=== PATIENT | female | born 1965 | race African-American/Black ===

== ENCOUNTER 2017-09-19 15:36 | Emergency (ER) | payer SELFPAY ==
[2017-09-19 15:40] VITALS: BP 127/78; BMI 37.3
--- NOTE | 2017-09-19 16:19 | DR.GENAD ---
HPI - PCP Primary Care Physician: NFSree - Complaint/Symptoms Chief Complaint:: PT C/O DIZZINESS WITH OCCIPITAL HEADACHES AND LIGHT CHEST PAIN. PT ALSO STATES SHE THINKS SHE HAS A BLOOD CLOT IN HER LT LOWER LEG. PT STATES THESE SYMPTOMS STARTED APPROX 1 WEEK AGO - Source History Provided: Patient - Mode of Arrival Mode of Arrival: Ambulatory - Timing Onset of Chief Complaint: 09/12/17 PMH - PMH Past Medical History: Yes Past Medical History: Anxiety, Depression Past Medical History Comment: INSOMMNIA, SLEEP APNEA Past Surgical History: Yes Surgical History: Past Surgical History Comment: WILDER HEART - Family History History of Family Medical Conditions: No - Social History Does any household member use tobacco: No Alcohol Use: None Do you use any recreational Drugs:: No Lives With: Family Lives Where: Home - infectious screening In the last 2 months have you had wt loss of >10#?: NO Have you had fever, night sweats or hemotysis?: No Have you traveled outside the country in the last 6 months?: No Isolation: Standard ROS - Review of Systems Eyes: No Symptoms Reported ENTM: No Symptoms Reported Respiratoy: No Symptoms Reported Cardiovascular: No Symptoms Reported Gastrointestinal/Abdominal: No Symptoms Reported Genitourinary: No Symptoms Reported Neurological: No Symptoms Reported Musculoskeletal: No Symptoms Reported Integumentary: No Symptoms Reported Hematologic/Lymphatic: No Symptoms Reported Endocrine: No Symptoms Reported Psychiatric: No Symptoms Reported All Other Systems: Reviewed and Negative PE - Vital Signs Vitals: Temperature 98.5 F Pulse Rate 87 Respiratory Rate 18 Blood Pressure 127/78 O2 Sat by Pulse Oximetry 100 - General Limitations: No Limitations General Appearance: Alert, In No Apparent Distress - Head Head Exam: Normal Inspection, Atraumatic - Eyes Eye exam: Normal Appearance, PERRL, EOMI - ENT ENT Exam: Normal Exam External Ear Exam: Normal External Inspection TM/Canal Exam: Bilateral Normal Nose Exam: Normal Nose Exam Mouth Exam: Normal Inspection Throat Exam: Normal Inspection - Neck Neck Exam: Normal Inspection, Full ROM - Chest Chest Inspection: Normal Inspection - Respiratory Respiratory Exam: Normal Lung Sounds Bilat Respiratory Exam: Bilateral Clear to Auscultation - Cardiovascular Cardiovascular Exam: Regular Rate, Normal Rhythm - Abdominal Exam Abdominal Exam: Normal Inspection, Normal Bowel Sounds Abdominal Tenderness: negative: RUQ, RLQ, LUQ, LLQ, Epigastrium, Suprapubic, Diffuse, Mild, Moderate, Severe, Other - Extremities Extremities Exam: Normal Inspection, Full ROM - Back Back Exam: Normal Inspection, Full ROM - Neurologic Neurological Exam: Alert, Oriented X3, CN II-XII Intact - Psychiatric Psychiatric Exam: Normal Affect - Skin Skin Exam: Warm, Dry, Intact Course - Reevaluation 1st: Unchanged ROR - Labs Reviewed Laboratory Results Reviewed?: Yes (visual acuity 20/30 0D/20/40 OD) Result Diagrams: 09/19/17 16:26 09/19/17 16:26 Laboratory: WBC 6.3 X10^3/uL (3.6-10.0) 09/19/17 16:26 RBC 5.04 X10^6/uL (3.5-5.4) 09/19/17 16:26 Hgb 12.5 g/dL (12.0-16.0) 09/19/17 16:26 Hct 39.4 % (36.0-47.0) 09/19/17 16:26 MCV 78.2 fL (80.0-100.0) L 09/19/17 16:26 MCH 24.9 pg (27.0-34.0) L 09/19/17 16:26 MCHC 31.8 g/dL (33.0-35.0) L 09/19/17 16:26 RDW 13.0 % (11.6-16.5) 09/19/17 16:26 Plt Count 219 X10^3/uL (150.0-450.0) 09/19/17 16:26 Plt Count Comment Adequate (ADEQUATE) 09/19/17 16:26 MPV 9.1 fL (7.4-11.0) 09/19/17 16:26 Neut % 63.3 % (42.0-75.0) 09/19/17 16:26 Lymph % 25.1 % (21.0-51.0) 09/19/17 16:26 Kings % 7.3 % (0.0-13.0) 09/19/17 16:26 Eos % 1.3 % (0.9-2.9) 09/19/17 16:26 Baso % 3.0 % (0.2-1.0) H 09/19/17 16:26 Neut # 4.0 x10^3/uL (2.2-4.8) 09/19/17 16:26 Lymph # 1.6 X10^3/uL (1.3-2.9) 09/19/17 16:26 Kings # 0.5 x10^3/uL (0.3-0.8) 09/19/17 16:26 Eos # 0.1 x10^3/uL (0.0-0.2) 09/19/17 16:26 Baso # 0.2 X10^3/uL (0.0-0.1) H 09/19/17 16:26 Absolute Nucleated RBC 0.0 /100WBC 09/19/17 16:26 Plt Morphology Comment Normal (NORMAL) 09/19/17 16:26 RBC Morphology Normal (NORMAL) 09/19/17 16:26 Sodium 144 mmol/L (136-145) 09/19/17 16:26 Corrected Sodium TNP 09/19/17 16:26 Potassium 3.9 mmol/L (3.5-5.1) 09/19/17 16:26 Chloride 107 mmol/L (98-107) 09/19/17 16:26 Carbon Dioxide 29.3 mmol/L (21-32) 09/19/17 16:26 BUN 16 mg/dL (7-18) 09/19/17 16:26 Creatinine 1.01 mg/dL (0.55-1.02) 09/19/17 16:26 Est GFR (MDRD) Af Amer > 60 (>60) 09/19/17 16:26 Est GFR (MDRD) Non-Af > 60 (>60) 09/19/17 16:26 Glucose 88 mg/dL (65-99) 09/19/17 16:26 Calcium 9.1 mg/dL (8.5-10.1) 09/19/17 16:26 - Diagnosis Discharge Problem: Dizziness, nonspecific, Visual acuity 20/40 - Discharge Plan Condition: Stable - Follow ups/Referrals Follow ups/Referrals: NFD,None [Primary Care Provider] - 3 days - Instructions
[2017-09-19 16:35] LABS: BASOPHILS # (AUTO) 0.2 X10^3/uL (0.0-0.1); EOSINOPHILS # (AUTO) 0.1 x10^3/uL (0.0-0.2); EOSINOPHILS % (AUTO) 1.3 % (0.9-2.9); HEMATOCRIT 39.4 % (36.0-47.0); HEMOGLOBIN 12.5 g/dL (12.0-16.0); LYMPHOCYTES # (AUTO) 1.6 X10^3/uL (1.3-2.9); LYMPHOCYTES % (AUTO) 25.1 % (21.0-51.0); MEAN CORPUSCULAR HEMOGLOBIN 24.9 pg (27.0-34.0); MEAN CORPUSCULAR HGB CONC 31.8 g/dL (33.0-35.0); MEAN CORPUSCULAR VOLUME 78.2 fL (80.0-100.0); MEAN PLATELET VOLUME 9.1 fL (7.4-11.0); MONOCYTES # (AUTO) 0.5 x10^3/uL (0.3-0.8); MONOCYTES % (AUTO) 7.3 % (0.0-13.0); NEUTROPHILS % (AUTO) 63.3 % (42.0-75.0); PLATELET COUNT 219 X10^3/uL (150.0-450.0); RED BLOOD COUNT 5.04 X10^6/uL (3.5-5.4); WHITE BLOOD COUNT 6.3 X10^3/uL (3.6-10.0)
[2017-09-19 16:45] LABS: BLOOD UREA NITROGEN 16 mg/dL (7-18); CALCIUM 9.1 mg/dL (8.5-10.1); CARBON DIOXIDE 29.3 mmol/L (21-32); CHLORIDE 107 mmol/L (98-107); CREATININE 1.01 mg/dL (0.55-1.02); SODIUM 144 mmol/L (136-145); eGFR BLACK RACES > 60 (>60); eGFR NON BLACK RACES > 60 (>60)
[2017-09-19 16:47] LABS: PLATELET MORPHOLOGY COMMENT NORMAL (NORMAL)
== END 2017-09-19 17:27 | disposition home or self-care (01) ==
LOC: ER 15:48
DX: R42 Dizziness and giddiness (principal); H54.7 Unspecified visual loss
CPT/HCPCS: 36415; 80048; 85025; 99282